=== PATIENT | female | born 1935 | race Caucasian/White ===

== ENCOUNTER 2018-09-23 07:50 | Emergency (ER) | payer MEDICARE ==
[~2018-09-23] VITALS: Ht 160 cm; Wt 60.0 kg
[~2018-09-23 07:50] MED LIST: CARCD120C PO; CHOL2000 PO; IBUP-1984 PO; LATA2.5D6 EACHEYE; LEVO75TA PO; MULT-1085 PO; NORCO10T PO; VITC500T PO; [UNRECOGNIZED DRUG - CODE] PO
[2018-09-23 08:57] LABS: BASOPHILS # (AUTO) 0.1 X10'3 (0-0.2); BASOPHILS % (AUTO) 0.6 % (0-1); EOSINOPHILS # (AUTO) 0.1 X10'3 (0-0.9); EOSINOPHILS % (AUTO) 0.6 % (0-6); HEMATOCRIT 37.4 % (35.0-45.0); HEMOGLOBIN 12.3 g/dl (12.0-16.0); LYMPHOCYTES % (AUTO) 8.4 % (21-51); MEAN CORPUSCULAR HEMOGLOBIN 29.2 PG (27.0-31.0); MEAN CORPUSCULAR VOLUME 88.6 FL (78-98); MEAN PLATELET VOLUME 6.7 FL (7.4-10.4); MONOCYTES % (AUTO) 8.2 % (2-12); NEUTROPHILS # (AUTO) 9.9 X10'3 (1.8-7.7); NEUTROPHILS % (AUTO) 82.2 % (42-75); PLATELET COUNT 590 X10'3 (140-440); RED BLOOD COUNT 4.23 X10'6 (4.20-5.60); RED CELL DISTRIBUTION WIDTH 13.9 % (11.5-14.5); WHITE BLOOD COUNT 12.1 X10'3 (4.5-11.0)
[2018-09-23 09:00] LABS: CLARITY,URINE CLEAR (Clear); COLOR,URINE YELLOW (Yellow); GLUCOSE, URINE NEGATIVE (Neg); KETONES,URINE TRACE mg/dl (Neg); LEUKOCYTE ESTERASE ,URINE NEGATIVE (Neg); NITRITES, URINE NEGATIVE (Neg); OCCULT BLOOD,URINE NEGATIVE (Neg); PH,URINE 5.5 (4.8-8.0); PROTEIN,URINE NEGATIVE (Neg); UROBILINOGEN,URINE 0.2 E.U/dL (0.2-1.0)
[2018-09-23 09:02] LABS: UA COLLECTION TYPE CLN CATCH MIDSTREAM
[2018-09-23 09:19] LABS: ALANINE AMINOTRANSFERASE 13 U/L (12-78); ALBUMIN 2.9 G/DL (3.4-5.0); ALBUMIN/GLOBULIN RATIO 0.7 (1.1-1.5); ALKALINE PHOSPHATASE 59 IU/L (46-116); ANION GAP 10 (8-16); ASPARTATE AMINO TRANSFERASE 11 U/L (10-37); BILIRUBIN,TOTAL 0.3 MG/DL (0.1-1.0); BLOOD UREA NITROGEN 19 MG/DL (7-18); BUN/CREATININE RATIO 24.7 (6.6-38.0); CALCIUM 9.3 MG/DL (8.5-10.1); CHLORIDE 103 MMOL/L (99-107); CREATININE 0.77 MG/DL (0.40-0.90); GLUCOSE 113 MG/DL (70-104); POTASSIUM 4.3 MMOL/L (3.5-5.1); SODIUM 139 MMOL/L (135-145); TOTAL CARBON DIOXIDE 26.5 MMOL/L (24-32); TOTAL PROTEIN 7.2 G/DL (6.4-8.2); eGFR 72 ML/MIN
[2018-09-23 09:42] LABS: CREATINE KINASE 44 U/L (26-192); MAGNESIUM 1.9 MG/DL (1.5-2.4)
[2018-09-23 10:27] VITALS: BP 145/72
== END 2018-09-23 10:29 | disposition home or self-care (01) ==
LOC: ER 07:50
DX: G89.29 Other chronic pain (principal); M54.2 Cervicalgia; R05 Cough; I48.91 Unspecified atrial fibrillation; Z88.0 Allergy status to penicillin; Z88.2 Allergy status to sulfonamides; Z88.6 Allergy status to analgesic agent; Z88.5 Allergy status to narcotic agent; Z88.8 Allergy status to other drugs, medicaments and biological substances; Z79.899 Other long term (current) drug therapy; Z98.890 Other specified postprocedural states
CPT/HCPCS: 36415; 71045; 80053; 81003; 82550; 82553; 83735; 83880; 84443; 85025; 93005; 99284

== ENCOUNTER 2019-01-16 11:36 | Emergency (ER) | payer MEDICARE ==
[~2019-01-16] VITALS: Ht 160 cm; Wt 55.0 kg
--- NOTE | 2019-01-16 12:00 | NUR ---
PT REFUSING ALL CARE. PROVIDER AWARE.
[2019-01-16] MEDS ORDERED: LORazepam 2 mg/ml vial IM ONE (12:05)
[2019-01-16 12:46] LABS: BASOPHILS # (AUTO) 0.1 X10'3 (0-0.2); BASOPHILS % (AUTO) 0.5 % (0-1); EOSINOPHILS # (AUTO) 0.1 X10'3 (0-0.9); EOSINOPHILS % (AUTO) 0.6 % (0-6); HEMATOCRIT 44.6 % (35.0-45.0); HEMOGLOBIN 14.9 g/dl (12.0-16.0); LYMPHOCYTES # (AUTO) 1.2 X10'3 (1.1-4.8); LYMPHOCYTES % (AUTO) 9.5 % (21-51); MEAN CORPUSCULAR HEMOGLOBIN 28.4 PG (27.0-31.0); MEAN CORPUSCULAR HGB CONC 33.3 g/dL (33.0-36.5); MEAN CORPUSCULAR VOLUME 85.1 FL (78-98); MEAN PLATELET VOLUME 6.9 FL (7.4-10.4); MONOCYTES # (AUTO) 1.1 X10'3 (0-0.9); MONOCYTES % (AUTO) 8.8 % (2-12); NEUTROPHILS # (AUTO) 10.3 X10'3 (1.8-7.7); NEUTROPHILS % (AUTO) 80.6 % (42-75); PLATELET COUNT 491 X10'3 (140-440); RED BLOOD COUNT 5.24 X10'6 (4.20-5.60); RED CELL DISTRIBUTION WIDTH 19.9 % (11.5-14.5); WHITE BLOOD COUNT 12.8 X10'3 (4.5-11.0)
[2019-01-16 12:55] LABS: ALANINE AMINOTRANSFERASE 42 U/L (12-78); ALBUMIN 3.4 G/DL (3.4-5.0); ALBUMIN/GLOBULIN RATIO 0.8 (1.1-1.5); ALKALINE PHOSPHATASE 55 IU/L (46-116); ANION GAP 10 (8-16); ASPARTATE AMINO TRANSFERASE 21 U/L (10-37); BILIRUBIN,TOTAL 0.7 MG/DL (0.1-1.0); BLOOD UREA NITROGEN 19 MG/DL (7-18); BUN/CREATININE RATIO 21.6 (6.6-38.0); CALCIUM 9.4 MG/DL (8.5-10.1); CHLORIDE 102 MMOL/L (99-107); CREATININE 0.88 MG/DL (0.40-0.90); GLUCOSE 106 MG/DL (70-104); POTASSIUM 4.4 MMOL/L (3.5-5.1); SODIUM 141 MMOL/L (135-145); TOTAL CARBON DIOXIDE 29.3 MMOL/L (24-32); TOTAL PROTEIN 7.5 G/DL (6.4-8.2); eGFR 61 ML/MIN
[2019-01-16 13:06] LABS: ETHANOL < 0.010 GM/DL (0.0-0.010)
--- NOTE | 2019-01-16 13:19 | NUR ---
in and out cath done with sterile technique, pt cesar well, needed assistance to hold pt still as she is uncooperative at times, family at bedside
[2019-01-16 13:30] LABS: CLARITY,URINE CLEAR (Clear); COLOR,URINE YELLOW (Yellow); GLUCOSE, URINE NEGATIVE (Neg); KETONES,URINE 40 mg/dl (Neg); LEUKOCYTE ESTERASE ,URINE NEGATIVE (Neg); NITRITES, URINE NEGATIVE (Neg); OCCULT BLOOD,URINE TRACE-LYSED (Neg); PROTEIN,URINE 30 mg/dl (Neg)
[2019-01-16 13:31] LABS: UA COLLECTION TYPE STRAIGHT CATH
[2019-01-16 13:43] LABS: URINE AMPHETAMINE SCREEN NEGATIVE (Neg); URINE BARBITUATE SCREEN NEGATIVE (Neg); URINE BENZODIAZEPINES SCREEN NEGATIVE (Neg); URINE CANNABINOID SCREEN NEGATIVE (Neg); URINE COCAINE SCREEN NEGATIVE (Neg); URINE METHADONE SCREEN NEGATIVE (Neg); URINE OPIATE SCREEN NEGATIVE (Neg); URINE PHENCYCLIDINE SCREEN NEGATIVE (Neg)
[2019-01-16 13:50] LABS: MUCUS STRANDS FEW /LPF (Neg); SQUAMOUS EPITHELIAL CELL,UR NONE SEEN /LPF (FEW); TRANSITIONAL EPI CELLS,URINE FEW /HPF
[2019-01-16 13:51] LABS: BACTERIA,URINE NONE SEEN /HPF (Neg); RBC,URINE 0-2 /HPF (0-2); WBC,URINE NONE SEEN /HPF (0-4); YEAST FEW /HPF (NEGATIVE)
--- NOTE | 2019-01-16 14:08 | NUR ---
PACKET HAS BEEN FAXED FROM [facility]
--- NOTE | 2019-01-16 14:20 | NUR ---
pt is resting quietly on gurney, resp even and unlabored,
--- NOTE | 2019-01-16 15:30 | NUR ---
PT IS RESTING QUIETLY ON FAMILY KATHRIN AT BEDSIDE
--- NOTE | 2019-01-16 16:30 | NUR ---
PT CONTINUES TO REST QUIETLY ON GURNEY, CALM AND COOPERATIVE
--- NOTE | 2019-01-16 17:00 | NUR ---
PT HAS AMBULATED WITH STEADY GAIT TO RESTROOM AND IS ASKING FOR SOMETHING TO EAT AND DRINK
--- NOTE | 2019-01-16 17:21 | NUR ---
CALLED [facility]ICE TO SEE IF THEY RECEIVED PACKET, THEY DID NOT SO PACKET WAS REFAXED
--- NOTE | 2019-01-16 17:51 | NUR ---
GAVE PT YOGURT, KALI CRACKERS AND WATER, NO N/V, [facility] RECEIVED PACKET, FAMILY WENT HOME, WIL CALDERÓN, SON,
[2019-01-16] MEDS ORDERED: RANI150T8 PO (17:54)
[2019-01-16] MEDS ORDERED: famotidine 20mg tablet PO ONE (18:10)
--- NOTE | 2019-01-16 18:16 | NUR ---
PT AMB WITH MIN ASSIST, STEADY GAIT, HAD SOME WATER, GAVE PT WARM BLANKET
--- NOTE | 2019-01-16 18:35 | NUR ---
REPORT GIVEN TO LINDSAY MARTINEZ, PT MOVED TO OVERFLOW
--- NOTE | 2019-01-16 19:00 | NUR ---
PATIENT ESCORTED TO ROOM 22 IN ER OVERFLOW AND BELONGINGS LOCKED UP, PATIENT IN GREEN SCRUBS WITH DISPOSABLE UNDERWEAR WITH PAD
--- NOTE | 2019-01-16 20:00 | NUR ---
PATIENT FINISHED 120 ML JUICE, SANDWHICH AND YOGURT
[2019-01-16] MEDS: latanoprost 0.005% 2.5ml ophthalmic drops EACHEYE SCH (21:00)
--- NOTE | 2019-01-16 21:00 | NUR ---
PATIENT FOLLOWING COMMANDS, APPROPRIATE
--- NOTE | 2019-01-16 22:00 | NUR ---
PATIENT APPEARS TO BE SLEEPING ON RIGHT SIDE, EYES CLOSED, RR EVEN AND UNLABORED
--- NOTE | 2019-01-17 00:15 | NUR ---
PATIENT APPEARS TO BE SLEEPING ON HER BACK RR EVEN AND UNLABORED
--- NOTE | 2019-01-17 02:29 | NUR ---
PATIENT APPEARS TO BE SLEEPING RR EVEN UNLABORED
[2019-01-17 05:53] VITALS: BP 147/75
--- NOTE | 2019-01-17 06:42 | NUR ---
Patient is in bed, sleeping.
--- NOTE | 2019-01-17 07:52 | NUR ---
patient appears to be sleeping
--- NOTE | 2019-01-17 08:49 | NUR ---
patient is awake, eating breakfast. Her is here and she is interacting with him.
[2019-01-17] MEDS: levoTHYROXINE 75mcg tablet PO SCH (09:02)
--- NOTE | 2019-01-17 09:03 | NUR ---
Pt is sitting up in bed, eating breakfast and visiting with her
--- NOTE | 2019-01-17 09:51 | NUR ---
Patient got up to use the restroom and is back in the room viriting with her .
--- NOTE | 2019-01-17 10:48 | NUR ---
Patint is resting quietly. Paged social media editor to request placement referrals with family.
--- NOTE | 2019-01-17 11:11 | NUR ---
Patient is calmly laying in bed, her is sitting at the bedside.
--- NOTE | 2019-01-17 11:32 | NUR ---
Patient appears to be sleeping, her is sitting at the bedside.
--- NOTE | 2019-01-17 12:09 | NUR ---
patient appears to be asleep.
--- NOTE | 2019-01-17 13:07 | NUR ---
pt refused lunch and tried to knock it off onto the floor after I suggested leaving it for her if she changed her mind.
--- NOTE | 2019-01-17 16:13 | NUR ---
Patient is talking and interacting appropriately with her , he is sitting at the bedside.
--- NOTE | 2019-01-17 17:38 | NUR ---
patient is becoming agitated and refuses to allow vitals to be taken.
--- NOTE | 2019-01-17 19:05 | NUR ---
Patient was visiting with family member. Patient is oriented to person and place. She exhibits dementia, she is labile. Patient was up to the bathroom once. Her gait is normal. She was able to go to the bathroom by herself. Patient is labile. She refuses vital signs. We will try not to amplify patients agitation as she threatened the tech with violence. This patient is released from her hold by [facility]. This insurance underwriter sales will speak with ER carpenter prototype to try and formulate a plan on this patient.
[2019-01-17] MEDS ORDERED: haloperidol lactate 5mg/ml inj IM ONE (19:25)
[2019-01-17] MEDS: latanoprost 0.005% 2.5ml ophthalmic drops EACHEYE SCH (21:00)
--- NOTE | 2019-01-18 00:46 | NUR ---
This patient has been sleeping most of the night. She has awoken twice and ambulated to the bathroom without problem. This patient is oriented X2. No hold is in place. Follow through in the am for possible discharge to home.
--- NOTE | 2019-01-18 03:18 | NUR ---
Patient is sleeping quietly, mid fowlers position. In direct view from nursing station.
--- NOTE | 2019-01-18 05:34 | NUR ---
Patient awakens and is easily agitated. She refuses vital signs despite coaching. Patient is parroting this writers words. She comes accross with confussion. When given warm blankets patient is thankful. Patient is allowed to return to sleep.
--- NOTE | 2019-01-18 05:35 | NUR ---
Pt refused AM vital signs. Pt was becoming agitated. RN aware.
--- NOTE | 2019-01-18 08:33 | NUR ---
RN called pt's son, Jeff Lockhart, and informed son that pt has been cleared by mental health. Pt may return home. Jeff Lockhart states the family will be up at [facility] at 10:00 this morning. Jeff Lockhart spoke with the case mgr yesterday and was told to page rn case manager when the family arrived. Pt being playful this morning. Playing peek-a-flaherty with the tech. Pt in bed talking to self. Pt ate breakfast this am.
[2019-01-18] MEDS: levoTHYROXINE 75mcg tablet PO SCH (09:22)
--- NOTE | 2019-01-18 09:58 | NUR ---
Family here as well as continuous pillowcase cutter to have discussion of placement for pt.
--- NOTE | 2019-01-18 11:45 | NUR ---
Pt's family here to pt home, pt belongings returned to pt, Pt refusing to change into her clothes. Pt put her Tshirt over the scrub top. Pt left wearing the scrubs and family asked to dispose of scrubs once she takes them off. Pt refusing to get out of bed. Security here to escort pt out. Pt finally left with family and security after much coaxing.
== END 2019-01-18 12:35 | disposition home or self-care (01) ==
LOC: ER 11:36
DX: F23 Brief psychotic disorder (principal); R41.0 Disorientation, unspecified; I48.91 Unspecified atrial fibrillation; Z98.890 Other specified postprocedural states; Z88.0 Allergy status to penicillin; Z88.2 Allergy status to sulfonamides; Z88.6 Allergy status to analgesic agent; Z88.5 Allergy status to narcotic agent; Z79.899 Other long term (current) drug therapy
CPT/HCPCS: 36415; 80053; 80305; 80320; 81001; 84443; 85025; 96372; 99284; J2060; P9612

== ENCOUNTER 2023-02-19 17:23 | Emergency (ER) | payer MEDICARE ==
[~2023-02-19] VITALS: Ht 160 cm; Wt 71.0 kg
[~2023-02-19 17:23] MED LIST changes: +ATOR40TA71 PO; -CARCD120C PO; -CHOL2000 PO; +DONE10TA44 PO; -IBUP-1984 PO; -LATA2.5D6 EACHEYE; -LEVO75TA PO; +LEVO75TA7 PO; +LISI10TA27 PO; +LOP12.5T PO; -MULT-1085 PO; +NABU-139 PO; -NORCO10T PO; +RIVA15TA PO; -VITC500T PO; -[UNRECOGNIZED DRUG - CODE] PO; +bismatrol PO
[2023-02-19 17:37] VITALS: BP 175/82; PULSE 80; RESP 16; TEMP 98.5; O2SAT 93
[2023-02-19 19:02] LABS: BILIRUBIN,URINE NEGATIVE (Neg); CLARITY,URINE CLEAR (Clear); COLOR,URINE STRAW (Yellow); GLUCOSE, URINE NEGATIVE (Neg); KETONES,URINE NEGATIVE (Neg); LEUKOCYTE ESTERASE ,URINE NEGATIVE (Neg); NITRITES, URINE NEGATIVE (Neg); OCCULT BLOOD,URINE TRACE-INTACT (Neg); PH,URINE 6.5 (4.8-8.0); PROTEIN,URINE NEGATIVE (Neg); UROBILINOGEN,URINE 0.2 E.U/dL (0.2-1.0)
[2023-02-19 19:10] LABS: UA COLLECTION TYPE CLN CATCH MIDSTREAM
[2023-02-19 19:14] LABS: BACTERIA,URINE NONE SEEN /HPF (Neg); MUCUS STRANDS NONE SEEN /LPF (Neg); RBC,URINE 0-2 /HPF (0-2); SQUAMOUS EPITHELIAL CELL,UR NONE SEEN /LPF (FEW); WBC,URINE 0-4 /HPF (0-4)
--- NOTE | 2023-02-19 19:15 | NUR ---
changed pt out of wet cloths. pt pt in gown and diaper
[2023-02-19 19:37] LABS: BASOPHILS # (AUTO) 0.1 X10'3 (0-0.2); BASOPHILS % (AUTO) 0.8 % (0-1); EOSINOPHILS # (AUTO) 0.3 X10'3 (0-0.9); EOSINOPHILS % (AUTO) 3.6 % (0-6); HEMATOCRIT 39.6 % (35.0-45.0); HEMOGLOBIN 13.3 g/dl (12.0-16.0); LYMPHOCYTES # (AUTO) 1.5 X10'3 (1.1-4.8); LYMPHOCYTES % (AUTO) 17.9 % (21-51); MEAN CORPUSCULAR HGB CONC 33.5 g/dL (33.0-36.5); MEAN CORPUSCULAR VOLUME 89.5 FL (78-98); MEAN PLATELET VOLUME 7.5 FL (7.4-10.4); MONOCYTES # (AUTO) 0.9 X10'3 (0-0.9); MONOCYTES % (AUTO) 11.3 % (2-12); NEUTROPHILS # (AUTO) 5.5 X10'3 (1.8-7.7); NEUTROPHILS % (AUTO) 66.4 % (42-75); PLATELET COUNT 324 X10'3 (140-440); RED BLOOD COUNT 4.43 X10'6 (4.20-5.60); RED CELL DISTRIBUTION WIDTH 14.9 % (11.5-14.5); WHITE BLOOD COUNT 8.3 X10'3 (4.5-11.0)
[2023-02-19 19:47] LABS: APTT 33 SECONDS (22-32); INR 1.1 INR; PROTHROMBIN TIME 11.6 SECONDS (9.0-12.0)
[2023-02-19 19:49] LABS: ALANINE AMINOTRANSFERASE 12 U/L (12-78); ALBUMIN 3.2 G/DL (3.4-5.0); ALBUMIN/GLOBULIN RATIO 0.9 (1.1-1.5); ALKALINE PHOSPHATASE 81 IU/L (46-116); ANION GAP 6 (8-16); ASPARTATE AMINO TRANSFERASE 17 U/L (10-37); BILIRUBIN,TOTAL 0.9 MG/DL (0.1-1.0); BLOOD UREA NITROGEN 12 MG/DL (7-18); BUN/CREATININE RATIO 16.9 (10.0-20.0); CALCIUM 9.2 MG/DL (8.5-10.1); CHLORIDE 103 MMOL/L (99-107); CREATININE 0.71 MG/DL (0.40-0.90); GLUCOSE 105 MG/DL (70-104); POTASSIUM 3.1 MMOL/L (3.5-5.1); SODIUM 140 MMOL/L (135-145); TOTAL CARBON DIOXIDE 30.9 MMOL/L (24-32); TOTAL PROTEIN 6.7 G/DL (6.4-8.2); eCRCL 46 ML/MIN; eGFR 78 ML/MIN
[2023-02-19 19:54] LABS: FREE T4 (FREE THYROXINE) 1.51 NG/DL (0.73-1.40)
[2023-02-19] MEDS ORDERED: potassium chloride 8mEq ER tablet PO ONE (20:15)
[2023-02-19] MEDS ORDERED: potassium chloride 8mEq ER tablet PO SCH (20:15)
== END 2023-02-19 21:59 | disposition home or self-care (01) ==
LOC: ER 17:24
DX: R53.1 Weakness (principal); Z20.822 Contact with and (suspected) exposure to COVID-19; Z88.0 Allergy status to penicillin; Z88.2 Allergy status to sulfonamides; Z88.6 Allergy status to analgesic agent; Z88.8 Allergy status to other drugs, medicaments and biological substances; Z79.899 Other long term (current) drug therapy
CPT/HCPCS: 36415; 70450; 71045; 80053; 81001; 84439; 84484; 85025; 85610; 85730; 87811; 93005; 99285

== ENCOUNTER 2023-12-17 15:53 | Emergency (ER) | payer MEDICARE ==
[~2023-12-17] VITALS: Ht 160 cm; Wt 65.9 kg
[2023-12-17 17:18] VITALS: TEMP 98.7
[2023-12-17 17:20] LABS: BASOPHILS # (AUTO) 0.1 X10'3 (0-0.2); BASOPHILS % (AUTO) 1.4 % (0-1); EOSINOPHILS # (AUTO) 0.1 X10'3 (0-0.9); HEMATOCRIT 42.1 % (35.0-45.0); HEMOGLOBIN 14.3 g/dl (12.0-16.0); LYMPHOCYTES # (AUTO) 2.1 X10'3 (1.1-4.8); LYMPHOCYTES % (AUTO) 30.3 % (21-51); MEAN CORPUSCULAR HEMOGLOBIN 29.9 PG (27.0-31.0); MEAN PLATELET VOLUME 7.7 FL (7.4-10.4); MONOCYTES # (AUTO) 0.6 X10'3 (0-0.9); NEUTROPHILS # (AUTO) 3.9 X10'3 (1.8-7.7); NEUTROPHILS % (AUTO) 57.3 % (42-75); PLATELET COUNT 412 X10'3 (140-440); RED BLOOD COUNT 4.78 X10'6 (4.20-5.60); RED CELL DISTRIBUTION WIDTH 15.2 % (11.5-14.5); WHITE BLOOD COUNT 6.8 X10'3 (4.5-11.0)
[2023-12-17 18:04] LABS: BILIRUBIN,URINE NEGATIVE (Neg); CLARITY,URINE CLEAR (Clear); COLOR,URINE YELLOW (Yellow); GLUCOSE, URINE NEGATIVE (Neg); KETONES,URINE NEGATIVE (Neg); LEUKOCYTE ESTERASE ,URINE NEGATIVE (Neg); NITRITES, URINE NEGATIVE (Neg); OCCULT BLOOD,URINE NEGATIVE (Neg); PROTEIN,URINE NEGATIVE (Neg); UA COLLECTION TYPE CLN CATCH MIDSTREAM; UROBILINOGEN,URINE 0.2 E.U/dL (0.2-1.0)
[2023-12-17 19:04] LABS: ALANINE AMINOTRANSFERASE 16 U/L (12-78); ALBUMIN 3.2 G/DL (3.4-5.0); ALBUMIN/GLOBULIN RATIO 0.7 (1.1-1.5); ALKALINE PHOSPHATASE 79 IU/L (46-116); ANION GAP 9 (8-16); ASPARTATE AMINO TRANSFERASE 14 U/L (10-37); BILIRUBIN,TOTAL 0.4 MG/DL (0.1-1.0); BLOOD UREA NITROGEN 24 MG/DL (7-18); CALCIUM 8.8 MG/DL (8.5-10.1); CHLORIDE 107 MMOL/L (99-107); GLUCOSE 108 MG/DL (70-104); POTASSIUM 3.6 MMOL/L (3.5-5.1); SODIUM 141 MMOL/L (135-145); TOTAL CARBON DIOXIDE 25.5 MMOL/L (24-32); TOTAL PROTEIN 7.7 G/DL (6.4-8.2); eCRCL 40 ML/MIN; eGFR 68 ML/MIN
[2023-12-17 22:30] VITALS: BP 147/80
[2023-12-17 23:50] VITALS: PULSE 86; RESP 14; O2SAT 95
== END 2023-12-18 01:16 | disposition home or self-care (01) ==
LOC: ER 15:53
DX: R07.9 Chest pain, unspecified (principal); Z88.0 Allergy status to penicillin; Z88.2 Allergy status to sulfonamides; Z88.5 Allergy status to narcotic agent; Z88.6 Allergy status to analgesic agent; Z88.8 Allergy status to other drugs, medicaments and biological substances
CPT/HCPCS: 36415; 71045; 80053; 81003; 84484; 85025; 93005; 99285

== ENCOUNTER 2023-12-21 09:39 | Emergency (ER) | payer MEDICARE ==
[~2023-12-21] VITALS: Ht 162.6 cm; Wt 77.3 kg
[2023-12-21] MEDS ORDERED: VALA100031 PO (10:45)
[2023-12-21 11:25] VITALS: BP 172/89; PULSE 77; RESP 16; TEMP 98.1; O2SAT 96
[2023-12-22] MEDS ORDERED: LIDO700A32 TOP (22:24)
== END 2023-12-21 11:27 | disposition home or self-care (01) ==
LOC: ER 09:40
DX: B02.9 Zoster without complications (principal); Z88.0 Allergy status to penicillin; Z88.2 Allergy status to sulfonamides; Z88.6 Allergy status to analgesic agent; Z88.5 Allergy status to narcotic agent; Z88.8 Allergy status to other drugs, medicaments and biological substances; Z79.899 Other long term (current) drug therapy
CPT/HCPCS: 99284

== ENCOUNTER 2023-12-22 18:00 | Emergency (ER) | payer MEDICARE ==
[~2023-12-22] VITALS: Ht 160 cm; Wt 59.1 kg
[~2023-12-22 18:00] MED LIST changes: +VALA100031 PO
[2023-12-22 18:51] LABS: BASOPHILS # (AUTO) 0.1 X10'3 (0-0.2); BASOPHILS % (AUTO) 1.3 % (0-1); EOSINOPHILS # (AUTO) 0.1 X10'3 (0-0.9); EOSINOPHILS % (AUTO) 0.8 % (0-6); HEMATOCRIT 45.5 % (35.0-45.0); HEMOGLOBIN 15.2 g/dl (12.0-16.0); LYMPHOCYTES # (AUTO) 0.8 X10'3 (1.1-4.8); LYMPHOCYTES % (AUTO) 11.1 % (21-51); MEAN CORPUSCULAR HEMOGLOBIN 29.6 PG (27.0-31.0); MEAN CORPUSCULAR HGB CONC 33.3 g/dL (33.0-36.5); MEAN PLATELET VOLUME 7.3 FL (7.4-10.4); MONOCYTES # (AUTO) 0.9 X10'3 (0-0.9); MONOCYTES % (AUTO) 13.4 % (2-12); NEUTROPHILS % (AUTO) 73.4 % (42-75); PLATELET COUNT 288 X10'3 (140-440); RED BLOOD COUNT 5.12 X10'6 (4.20-5.60); RED CELL DISTRIBUTION WIDTH 14.6 % (11.5-14.5); WHITE BLOOD COUNT 6.8 X10'3 (4.5-11.0)
[2023-12-22 19:03] LABS: ALBUMIN 3.1 G/DL (3.4-5.0); ANION GAP 12 (8-16); BLOOD UREA NITROGEN 24 MG/DL (7-18); BUN/CREATININE RATIO 22.9 (10.0-20.0); CHLORIDE 103 MMOL/L (99-107); CREATININE 1.05 MG/DL (0.40-0.90); GLUCOSE 117 MG/DL (70-104); POTASSIUM 4.1 MMOL/L (3.5-5.1); PRO BRAIN NATRIURETIC PEPTIDE 1234 PG/ML (0-450); SODIUM 138 MMOL/L (135-145); TOTAL CARBON DIOXIDE 23.1 MMOL/L (24-32); eCRCL 31 ML/MIN; eGFR 49 ML/MIN
[2023-12-22] MEDS: LIDOcaine 5% patch TP SCH (19:15)
[2023-12-22 21:48] LABS: BILIRUBIN,URINE NEGATIVE (Neg); CLARITY,URINE CLEAR (Clear); COLOR,URINE YELLOW (Yellow); GLUCOSE, URINE NEGATIVE (Neg); KETONES,URINE NEGATIVE (Neg); LEUKOCYTE ESTERASE ,URINE NEGATIVE (Neg); NITRITES, URINE NEGATIVE (Neg); OCCULT BLOOD,URINE TRACE-INTACT (Neg); PH,URINE 5.5 (4.8-8.0); PROTEIN,URINE TRACE mg/dl (Neg); UROBILINOGEN,URINE 0.2 E.U/dL (0.2-1.0)
[2023-12-22 21:58] LABS: UA COLLECTION TYPE NON-SPECIFIED
[2023-12-22 21:59] LABS: WBC,URINE 0-4 /HPF (0-4)
[2023-12-22 22:00] LABS: BACTERIA,URINE NONE SEEN /HPF (Neg); MUCUS STRANDS FEW /LPF (Neg); SQUAMOUS EPITHELIAL CELL,UR FEW /LPF (FEW)
[2023-12-22] MEDS ORDERED: LIDO700A32 TOP (22:24)
[2023-12-22 22:46] VITALS: BP 132/86; PULSE 82; RESP 18; TEMP 97.7; O2SAT 98
== END 2023-12-22 22:48 | disposition home or self-care (01) ==
LOC: ER 18:01
DX: R06.00 Dyspnea, unspecified (principal); B02.9 Zoster without complications; I48.91 Unspecified atrial fibrillation; F03.90 Unspecified dementia, unspecified severity, without behavioral disturbance, psychotic disturbance, mood disturbance, and anxiety; Z88.0 Allergy status to penicillin; Z88.2 Allergy status to sulfonamides; Z88.6 Allergy status to analgesic agent; Z88.8 Allergy status to other drugs, medicaments and biological substances; Z79.899 Other long term (current) drug therapy; Z79.2 Long term (current) use of antibiotics
CPT/HCPCS: 36415; 71045; 80048; 81001; 83605; 83880; 85025; 87040; 93005; 99285

== ENCOUNTER 2024-02-20 18:12 | Emergency (ER) | payer MEDICARE ==
[~2024-02-20] VITALS: Ht 165.1 cm; Wt 59.6 kg
[~2024-02-20 18:12] MED LIST changes: +LIDO700A32 TOP
[2024-02-20 20:07] LABS: BASOPHILS # (AUTO) 0.1 X10'3 (0-0.2); EOSINOPHILS # (AUTO) 0.3 X10'3 (0-0.9); HEMOGLOBIN 13.6 g/dl (12.0-16.0); MEAN PLATELET VOLUME 7.2 FL (7.4-10.4)
[2024-02-20 20:09] LABS: BASOPHILS % (AUTO) 1.2 % (0-1); EOSINOPHILS % (AUTO) 3.6 % (0-6); HEMATOCRIT 41.9 % (35.0-45.0); LYMPHOCYTES # (AUTO) 1.9 X10'3 (1.1-4.8); LYMPHOCYTES % (AUTO) 21.6 % (21-51); MEAN CORPUSCULAR HEMOGLOBIN 29.5 PG (27.0-31.0); MEAN CORPUSCULAR HGB CONC 32.5 g/dL (33.0-36.5); MEAN CORPUSCULAR VOLUME 90.5 FL (78-98); MONOCYTES # (AUTO) 0.7 X10'3 (0-0.9); MONOCYTES % (AUTO) 8.2 % (2-12); NEUTROPHILS # (AUTO) 5.8 X10'3 (1.8-7.7); NEUTROPHILS % (AUTO) 65.4 % (42-75); PLATELET COUNT 598 X10'3 (140-440); RED BLOOD COUNT 4.63 X10'6 (4.20-5.60); RED CELL DISTRIBUTION WIDTH 14.9 % (11.5-14.5); WHITE BLOOD COUNT 8.9 X10'3 (4.5-11.0)
[2024-02-20 20:18] LABS: INR 1.1 INR; PROTHROMBIN TIME 11.6 SECONDS (9.0-12.0)
[2024-02-20 22:13] VITALS: BP 145/89; PULSE 96; RESP 19; TEMP 98; O2SAT 97
== END 2024-02-20 22:16 | disposition home or self-care (01) ==
LOC: ER 18:12
DX: R60.0 Localized edema (principal); M66.0 Rupture of popliteal cyst; I48.91 Unspecified atrial fibrillation; Z88.0 Allergy status to penicillin; Z88.2 Allergy status to sulfonamides; Z88.5 Allergy status to narcotic agent; Z88.6 Allergy status to analgesic agent; Z79.899 Other long term (current) drug therapy
CPT/HCPCS: 36415; 85025; 85610; 93971; 99285

== ENCOUNTER 2024-05-25 08:51 | Emergency (ER) | payer MEDICARE ==
[~2024-05-25] VITALS: Ht 162.6 cm; Wt 55.9 kg
[2024-05-25 09:56] LABS: BASOPHILS % (AUTO) 0.3 % (0-1); EOSINOPHILS % (AUTO) 0.3 % (0-6); HEMATOCRIT 43.9 % (35.0-45.0); HEMOGLOBIN 14.8 g/dl (12.0-16.0); LYMPHOCYTES # (AUTO) 0.3 X10'3 (1.1-4.8); LYMPHOCYTES % (AUTO) 2.1 % (21-51); MEAN CORPUSCULAR HEMOGLOBIN 29.3 PG (27.0-31.0); MEAN CORPUSCULAR HGB CONC 33.7 g/dL (33.0-36.5); MONOCYTES # (AUTO) 0.4 X10'3 (0-0.9); NEUTROPHILS # (AUTO) 13.4 X10'3 (1.8-7.7); NEUTROPHILS % (AUTO) 94.3 % (42-75); PLATELET COUNT 483 X10'3 (140-440); RED BLOOD COUNT 5.04 X10'6 (4.20-5.60); RED CELL DISTRIBUTION WIDTH 15.8 % (11.5-14.5); WHITE BLOOD COUNT 14.2 X10'3 (4.5-11.0)
[2024-05-25 10:04] LABS: INR 1.1 INR; PROTHROMBIN TIME 11.8 SECONDS (9.0-12.0)
[2024-05-25 10:07] LABS: ALANINE AMINOTRANSFERASE 12 U/L (12-78); ALBUMIN 3.2 G/DL (3.4-5.0); ALBUMIN/GLOBULIN RATIO 0.6 (1.1-1.5); ALKALINE PHOSPHATASE 84 IU/L (46-116); ANION GAP 13 (8-16); ASPARTATE AMINO TRANSFERASE 16 U/L (10-37); BILIRUBIN,TOTAL 0.6 MG/DL (0.1-1.0); BLOOD UREA NITROGEN 26 MG/DL (7-18); BUN/CREATININE RATIO 28.6 (10.0-20.0); CALCIUM 9.2 MG/DL (8.5-10.1); CHLORIDE 103 MMOL/L (99-107); CREATININE 0.91 MG/DL (0.40-0.90); GLUCOSE 118 MG/DL (70-104); POTASSIUM 3.7 MMOL/L (3.5-5.1); SODIUM 140 MMOL/L (135-145); TOTAL PROTEIN 8.2 G/DL (6.4-8.2); eCRCL 37 ML/MIN; eGFR 58 ML/MIN
[2024-05-25 13:36] VITALS: BP 139/69; PULSE 100; RESP 16; TEMP 98.6; O2SAT 98
== END 2024-05-25 13:38 | disposition home or self-care (01) ==
LOC: ER 08:51
DX: S70.02XA Contusion of left hip, initial encounter (principal); F03.90 Unspecified dementia, unspecified severity, without behavioral disturbance, psychotic disturbance, mood disturbance, and anxiety; M54.2 Cervicalgia; M25.512 Pain in left shoulder; M81.0 Age-related osteoporosis without current pathological fracture; I48.91 Unspecified atrial fibrillation; Z87.891 Personal history of nicotine dependence; Z88.0 Allergy status to penicillin; Z88.2 Allergy status to sulfonamides; Z88.5 Allergy status to narcotic agent; Z88.8 Allergy status to other drugs, medicaments and biological substances; Z98.890 Other specified postprocedural states; W19.XXXA Unspecified fall, initial encounter; Y93.89 Activity, other specified; Y92.89 Other specified places as the place of occurrence of the external cause; Y99.8 Other external cause status
CPT/HCPCS: 36415; 70450; 72125; 73030; 73501; 80053; 85025; 85610; 93005; 99285

== ENCOUNTER 2024-10-04 18:24 | Emergency (ER) | payer MEDICARE ==
[~2024-10-04] VITALS: Ht 160 cm; Wt 52.3 kg
[2024-10-04 18:26] VITALS: TEMP 98
--- NOTE | 2024-10-04 18:42 | Physician Documentation ---
History of Present Illness ~ Chief Complaint: Mechanical Fall Stated Complaint: GROUND LEVEL FALL Time Seen by MD: 18:36 OK to notify your PCP?: Yes Primary Medical Doctor: PHUONG RAMIRES Source: patient, EMS HPI 89-year-old female, hx of dementia, not on anticoagulation, who presents with a fall and head injury. She tells me that she tripped and fell, striking her head on the carpet on the floor as well as hitting the left side of her body. Unknown loss of consciousness. She does report having a headache. She also reports pain in her left elbow, hip and knee. No medications given during transport. Reportedly she is at her mental status baseline per EMS. Tetanus within 5 years?: Yes Medication Reconciliation Allergies: Coded Allergies: Penicillins (Verified Allergy, Unknown, 10/04/24) Sulfa (Sulfonamide Antibiotics) (Verified Allergy, Unknown, RASH/HIVES, 10/04/24) acetaminophen (Verified Allergy, Unknown, 10/04/24) gabapentin (Verified Allergy, Unknown, 10/04/24) hydrocodone (Verified Allergy, Unknown, 10/04/24) phenobarbital (Verified Allergy, Unknown, RASH/HIVES, 10/04/24) morphine (Verified Adverse Reaction, Unknown, NAUSEA, DIZZINESS, 10/04/24) Scheduled Atorvastatin Calcium (Atorvastatin Calcium), 1 TAB PO DAILY Donepezil Hcl (Aricept), 1 TAB PO DAILY, (Reported) Levothyroxine Sodium (Levothyroxine Sodium), 1 TAB PO DAILY, (Reported) Lidocaine (Lidoderm), 1 PATCH TOP DAILY Lisinopril (Lisinopril), 1 TAB PO DAILY Metoprolol Tartrate (Lopressor tablet), 25 MG PO BID Nabumetone (Nabumetone), 1 TAB PO BID, (Reported) Rivaroxaban (Xarelto), 15 MG PO DAILY, (Reported) Valacyclovir HCl (Valacyclovir), 1 TAB PO Q8H Scheduled PRN [bismatrol], 30 ML PO q1hr PRN for nausea/vomiting, (Reported) Past Medical History Past Medical History: Dementia, Atrial Fibrillation, Thyroid (unspecified), Extremity Fracture Past Surgical History: orthopedic surgeries, other Other Past Surgical History: Uterine left Patient History: FH: ovarian cancer Hypertension in father Hypertension in mother Alcohol Use: None Drug Use: none Lives with: Other Lives In: Assisted Care Occupation: retired Review of Systems Neurological: Reports: headache Musculoskeletal: Reports: joint pain, muscle pain Physical Exam Vital Signs: Temperature: 98.0, Source: Oral, Heart Rate: 58, Respiratory Rate: 16, BP: 157/62, Pulse Oximetry: 96, Weight: 52.300 Physical Exam General: This is a thin and frail-appearing elderly female sitting comfortably in bed HEENT: Hematoma to the left lateral scalp with no overlying abrasion or laceration, otherwise no tenderness or injuries to the scalp, oropharynx is dry Heart: Regular rate and rhythm, normal-appearing peripheral perfusion Lungs: normal work of breathing, normal oxygen saturation on room air Abdomen: Soft, nondistended, nontender all quadrants Extremities: Warm and well-perfused Left upper extremity: The patient has a superficial abrasion over the lateral elbow, but no focal bony point tenderness, full range of motion without pain Left lower extremity: The patient has mild tenderness on palpation of the lateral hip and knee, but no significant pain with full range of motion of the hip and knee, no overlying bruises or abrasions Neuro: Alert and oriented self and location, has some difficulty with history questions, no focal deficits Psychiatric: Calm and cooperative with exam Progress Results/Orders Results/Orders Orders - ABNER BLACK MD Ct Head (10/04/24 18:37) Completed Orders - ABNER BLACK MD Ct Head (10/04/24 18:37) Vital Signs 10/04/24 10/04/24 10/04/24 18:26 18:39 18:39 Temp 98.0 Pulse 58 61 Resp 16 16 B/P (MAP) 157/62 157/62 (93) Pulse Ox 96 96 O2 Flow Rate 0 EKG/XRAY/CT/US/VASC/MRI CT : Impression I personally reviewed the CT scan, and this shows no acute fracture, intracranial hemorrhage, or mass. There is a scalp hematoma Medical Decision Making Differential Dx:Considerations: Include: Closed head injury, Cervical spine injury, Skull facture, Abrasion, Contusion Additional Comment Differential includes intracranial hemorrhage Assessment 89-year-old female presenting with a fall and head injury. She had no preceding symptoms, no infectious symptoms or other obvious cause for the fall. On exam she does have significant scalp contusion, but otherwise appears to have some mild bruising and abrasions to the left side of her body without evidence of significant traumatic injury or fractures. A head CT was obtained, which shows no intracranial hemorrhage or fracture. She will be discharged with symptomatic treatment. Departure Time of Disposition: 19:50 Disposition: 01 HOME / SELF CARE / HOMELESS Impression: Primary Impression: Scalp hematoma Additional Impressions: Ground-level fall Contusion of left knee Condition: Stable Discharge Instructions: Facial or Scalp Contusion Referrals: NO PRIMARY CARE PROVIDER (PCP) Comments The CT scan did not show any broken bones or bleeding or on your brain. You likely have bruises to your hip and knee, but no findings to suggest other broken bones or dangerous injuries. Please use ice and anti-inflammatory medications as needed for pain. Education Educated: Patient Educated regarding: diagnosis, need for follow up Signature Scribe Signature: na Attestation: na Assessment/Plan Assessment 89-year-old female presenting with a fall and head injury. She had no preceding symptoms, no infectious symptoms or other obvious cause for the fall. On exam she does have significant scalp contusion, but otherwise appears to have some mild bruising and abrasions to the left side of her body without evidence of significant traumatic injury or fractures. A head CT was obtained, which shows ABNER BLACK MD Oct 04, 2024 18:42
--- NOTE | 2024-10-04 19:42 | RADIOLOGY REPORT ---
Clinical History fall, left head injury Comparison CT Head on 05/25/2024, 192 images. Technique: Contiguous axial CT images of the head without intravenous contrast administration. Coron al and sagittal reformation was performed. All CT scans at this medical facility are performed using dose modulation techniques as appropriate t o a performed exam including the following: Automated exposure control was utilized; adjustment of th e mA and/or kV according to patient size; and use of iterative reconstruction technique. All CT studies are reported to the Dose Index Registry of the [employer] [place] [employer]. Without Contrast Radiation Dose: CTDI (mGy): 54.87; DLP (mGy-cm): 1008.01 LAURA CALDERÓN, [id number] Findings: Multiple patchy to confluent hypoattenuated foci are in bilateral periventricular, deep, and subcorti levy white matter. The remaining brain parenchyma shows otherwise normal ramos-white matter differenti ation without any mass, bleed, edema, or herniation. The sulci, cisterns, and ventricles are intact. No extra-axial fluid collection or skull lesion is present. The left parietal scalp shows a small hematoma. The imaged portions of the paranasal sinuses and mastoid air cells are clear. Both lenses have been removed. Both orbits are otherwise grossly normal. Impression: 1. No acute intracranial abnormality. Left parietal scalp hematoma. 2. Bilateral white matter lesions probably represent chronic small vessel ischemic changes. This report was electronically signed by Saturnino Hunt MD on 10/04/2024 7:38:21 PM.
[2024-10-04 20:25] VITALS: BP 129/72; PULSE 76; RESP 16; O2SAT 96
== END 2024-10-04 20:27 | disposition home or self-care (01) ==
LOC: ER 18:25
DX: S00.03XA Contusion of scalp, initial encounter (principal); S80.02XA Contusion of left knee, initial encounter; F03.90 Unspecified dementia, unspecified severity, without behavioral disturbance, psychotic disturbance, mood disturbance, and anxiety; I48.91 Unspecified atrial fibrillation; Z88.0 Allergy status to penicillin; Z88.2 Allergy status to sulfonamides; Z88.5 Allergy status to narcotic agent; Z88.8 Allergy status to other drugs, medicaments and biological substances; W01.0XXA Fall on same level from slipping, tripping and stumbling without subsequent striking against object, initial encounter; Y93.89 Activity, other specified; Y92.89 Other specified places as the place of occurrence of the external cause; Y99.8 Other external cause status
CPT/HCPCS: 70450; 99284